=== PATIENT | male | born 1990 | race Two or more races ===

== ENCOUNTER 2023-09-07 17:39 | Emergency (ER) | payer OTHER ==
[~2023-09-07] VITALS: Ht 167.6 cm; Wt 108.9 kg
== END 2023-09-07 19:33 | disposition home or self-care (01) ==
LOC: ER 17:40
DX: G44.209 Tension-type headache, unspecified, not intractable (principal)

== ENCOUNTER 2025-01-31 12:48 | Emergency (ER) | payer OTHER ==
[~2025-01-31] VITALS: Ht 167.6 cm; Wt 111.1 kg
[2025-01-31 12:53] VITALS: BP 129/94; O2SAT 99
[2025-01-31] MEDS ORDERED: MONTELUKAST SODIUM 10 MG TABLET PO ONE (13:45)
[2025-01-31 14:47] LABS: BASO % 0.8 % (0.1-1.2); EOS # 0.22 (0.04-0.54); EOS % 2.1 % (0.7-7.0); HEMOGLOBIN 15.5 g/dL (13.7-17.5); LYMPH # 3.11 (1.18-3.74); LYMPH % 29.1 % (19.3-53.1); MEAN CORPUSCULAR HEMOGLOBIN 24.9 pg (25.6-32.2); MONO # 0.53 (0.24-0.82); NEUT # 6.72 (1.56-6.13); NEUT % 62.7 % (34.0-71.1); PLATELET COUNT 268 K/uL (163-369); RED BLOOD COUNT 6.22 M/uL (4.63-6.08); RED CELL DISTRIBUTION WIDTH 13.8 % (11.6-14.4)
== END 2025-01-31 17:29 | disposition home or self-care (01) ==
LOC: ER 12:48
PROVIDERS: General Practice
DX: J30.9 Allergic rhinitis, unspecified (principal); Z88.6 Allergy status to analgesic agent; Z88.8 Allergy status to other drugs, medicaments and biological substances; Z87.09 Personal history of other diseases of the respiratory system